=== PATIENT | female | born 1980 | race Caucasian/White ===

== ENCOUNTER 2018-09-14 06:33 | Day surgery (SDC) | payer OTHER ==
[2018-09-11 15:36] LABS: BASOPHILS # (AUTO) 0.1 X10'3 (0-0.2); BASOPHILS % (AUTO) 0.9 % (0-1); EOSINOPHILS # (AUTO) 0.1 X10'3 (0-0.9); EOSINOPHILS % (AUTO) 2.4 % (0-6); LYMPHOCYTES # (AUTO) 1.7 X10'3 (1.1-4.8); MEAN CORPUSCULAR HGB CONC 34.2 g/dL (33.0-36.5); MEAN CORPUSCULAR VOLUME 90.6 FL (78-98); MEAN PLATELET VOLUME 7.5 FL (7.4-10.4); MONOCYTES # (AUTO) 0.6 X10'3 (0-0.9); MONOCYTES % (AUTO) 9.1 % (2-12); NEUTROPHILS # (AUTO) 3.8 X10'3 (1.8-7.7); NEUTROPHILS % (AUTO) 60.6 % (42-75); PRE OP HEMATOCRIT 39.3 % (35.0-45.0); PRE OP HEMOGLOBIN 13.4 g/dL (12.0-16.0); PRE OP PLATELET COUNT 396 X10'3 (140-440); RED BLOOD COUNT 4.34 X10'6 (4.20-5.60)
[2018-09-11 15:52] LABS: HCG SERUM QL NEGATIVE
[~2018-09-14] VITALS: Ht 154.9 cm; Wt 85.6 kg
[2018-09-14] VITALS (10 sets, daily range): BP systolic 108–116; BP diastolic 61–70
[~2018-09-14 06:33] MED LIST: NO HOME MEDS; ceFAZolin 2gm in dextrose, iso 100 ML IV ONE; famotidine 20mg tablet PO ONE; ringers solution, lacted 1,000 ML IV SCH
[2018-09-14] MEDS ORDERED: CLIN-12 PO (07:05)
[2018-09-14] MEDS ORDERED: IBUP-1984 PO (07:05)
[2018-09-14] MEDS ORDERED: ringers solution, lacted 1,000 ML IV SCH (08:15)
[2018-09-14] MEDS ORDERED: meperidine/PF 25mg/ml syringe IV PRN ×2 (08:15)
[2018-09-14] MEDS ORDERED: proCHLORperazine 10 MG/2 ml inj IV PRN (08:15)
[2018-09-14] MEDS ORDERED: morphine 4 MG/ML inj SYRINge IV PRN ×2 (08:15)
[2018-09-14] MEDS ORDERED: ondansetron/PF 4mg/2ml inj IV PRN (08:15)
[2018-09-14] MEDS ORDERED: propofol inj 20 ML IV ONE ×2 (08:36→10:52)
[2018-09-14] MEDS ORDERED: LIDOcaine 2% (20mg/ml) 5ml vial ONE ×2 (08:36→10:52)
[2018-09-14] MEDS ORDERED: rocuronium 10mg/ml inj IV ONE (08:36)
[2018-09-14] MEDS ORDERED: epiNEPHrine 1 mg/ml inj ONE (08:46)
[2018-09-14] MEDS ORDERED: BUPIVAcaine/PF 2.5mg/ml (0.25%) 10ml vial ONE (08:46)
[2018-09-14] MEDS ORDERED: sevoflurane 250ml liquid IH ONE (10:25)
[2018-09-14] MEDS ORDERED: fentaNYL/PF 50MCG/1 ML 2ML syringe ONE (10:29)
[2018-09-14] MEDS ORDERED: midazolam 2 mg/2 ml injection ONE (10:38)
[2018-09-14] MEDS ORDERED: neostigmine methylsulfate 1 MG/ML 10ml vial ONE ×2 (10:52)
[2018-09-14] MEDS ORDERED: ondansetron/PF 4mg/2ml inj ONE ×2 (10:52)
[2018-09-14] MEDS ORDERED: dexamethasone sod phosphate 4mg/ml inj. ONE (10:52)
[2018-09-14] MEDS ORDERED: glycopyrrolate 0.2mg/ml inj ONE (10:52)
[2018-09-14] MEDS ORDERED: sugammadex 200mg/2ml injection IV ONE (10:58)
[2018-09-14] MEDS ORDERED: meperidine/PF 50mg/ml syringe ONE (11:13)
--- NOTE | 2018-09-14 11:16 | NUR ---
Received from OR via , accompanied by Anesthesiologist DENISE and report given by Anesthesiolgist. AWAKE IN NO RESP DISTRESS SKIN WARM AND DRY HOB ELEVATED, ABD SOFT DSG DI, NO CO PAIN.
[2018-09-14] MEDS: meperidine/PF 25mg/ml syringe IV PRN ×2 (11:44→11:53)
--- NOTE | 2018-09-14 12:36 | NUR ---
AWAKE VS WNL, ABD SOFT DSG DI, PAIN DECREASED AFTER IV MEDS. DHARA PAD DI, TOLERATES LIQUIDS. DISCH INSTR GIVEN TO PT AND UNDERSTOOD, HOME WITH
== END 2018-09-14 12:36 | disposition home or self-care (01) ==
LOC: PAS 06:33
PROVIDERS: ATTEND Obstetrics & Gynecology
DX: Z30.2 Encounter for sterilization (principal); Z72.89 Other problems related to lifestyle; Z87.891 Personal history of nicotine dependence
CPT/HCPCS: 36415; 58670; 82948; 84703; 85025; A6258; A6402; C9399; J0171; J0690; J1100; J2001; J2175; J2250; J2405; J2704; J2710; J3010; J3490; A7000; J7120